=== PATIENT | female | born 1995 | race Caucasian/White ===

== ENCOUNTER 2023-04-17 05:34 | Emergency (ER) | payer BC, SELFPAY ==
[2023-04-17 05:37] VITALS: BP 150/88; PULSE 90; RESP 18; TEMP 36.6; O2SAT 97
[2023-04-17 07:43] VITALS: BP 133/85; PULSE 87; RESP 17; O2SAT 99
--- NOTE | 2023-04-17 08:37 | ED.GENADULT ---
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 No fevers or chills or sweats. No drainage. No urinary frequency urgency or dysuria. Has not had previous issues like this. 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 Related Data Allergies Allergy/AdvReac Type Severity Reaction Status Date / Time Cephalosporins Allergy Hives Verified 04/17/23 05:44 Sulfa (Sulfonamide Allergy Hives Verified 04/17/23 05:44 Antibiotics) Review of Systems Constitutional: Constitutional: Reports no additional constitutional complaints Gastrointestinal: Gastrointestinal: Reports no additional gastrointestinal complaints Genitourinary: Genitourinary: Reports no additional female genitourinary complaints Integumentary/Breasts: Skin/Breast: Reports system reviewed and no additional complaints, except as docu PMFSH Past Medical History Medical History (Updated 04/17/23 @ 08:41 by Darius Fleming MD) Healthy female adult Surgical History Surgical History (Updated 04/17/23 @ 08:38 by Darius Fleming MD) No pertinent past surgical history Exam Narrative: GENERAL: Well-appearing, well-nourished, and in no acute distress. HEAD: Normocephalic, atraumatic. CHEST: Clear to auscultation. No respiratory distress. HEART: Regular rate and rhythm. Normal peripheral pulses. : Swelling right Bartholin's gland cyst without cellulitis to the labia. EXTREMITIES: Normal range of motion. No edema. SKIN: Warm, dry, no rash. NEURO: Alert and oriented x3. PSYCH: Normal mood and affect. Course Course Emergency Course: Tolerated I and D. Discussed case with Gynecology on-call. Recommend follow-up next week and starting antibiotics. Patient verbalized understanding treatment plan. Vital Signs Vital signs: Vital Signs Temperature 97.9 F 04/17/23 05:37 Pulse Rate 90 04/17/23 05:37 Respiratory Rate 18 04/17/23 05:37 Blood Pressure 150/88 H 04/17/23 05:37 Pulse Oximetry 97 04/17/23 05:37 Oxygen Delivery Room Air 04/17/23 05:37 Temperature 97.9 F 04/17/23 05:37 Pulse Rate 87 04/17/23 07:43 Respiratory Rate 17 04/17/23 07:43 Blood Pressure 133/85 04/17/23 07:43 Pulse Oximetry 99 04/17/23 07:43 Oxygen Delivery Room Air 04/17/23 05:37 Procedures Abscess I/D bartholin's gland: Date of Incision: 04/17/23 Time of Incision: 08:00 Side (if applicable): right Local Anesthetic: lidocaine 1% and with epi Amount of anesthesia used (mL): 4 Technique: incised with #11 blade Packing used?: Word catheter I&D Results: Pus Medical Decision Making Vital Signs Vital Signs: Vital Signs Temperature 97.9 F 04/17/23 05:37 Pulse Rate 90 04/17/23 05:37 Respiratory Rate 18 04/17/23 05:37 Blood Pressure 150/88 H 04/17/23 05:37 Pulse Oximetry 97 04/17/23 05:37 Oxygen Delivery Room Air 04/17/23 05:37 Temperature 97.9 F 04/17/23 05:37 Pulse Rate 87 04/17/23 07:43 Respiratory Rate 17 04/17/23 07:43 Blood Pressure 133/85 04/17/23 07:43 Pulse Oximetry 99 04/17/23 07:43 Oxygen Delivery Room Air 04/17/23 05:37 Discharge Plan Discharge Clinical Impression: Bartholin's gland abscess Patient Disposition: Home, Self-Care Condition: Stable Instructions: Antibiotic Form, Bartholin Cyst (ED) Additional Instructions: Follow-up with gynecology for further treatment evaluation. You will need to have your catheter removed. If it does fall out that is okay. Prescriptions: New doxycycline hyclate 100 mg capsule 100 mg PO BID Qty: 14 0RF hydrocodone-acetaminophen 5-325 mg tablet 1 tablet PO Q6H PRN (Re
[2023-04-17 08:46] VITALS: BP 137/85; PULSE 97; RESP 16; TEMP 37.1; O2SAT 97
== END 2023-04-17 09:10 | disposition home or self-care (01) ==
LOC: ANHED 09:06
PROVIDERS: Emergency Provider Emergency Medicine
DX: N75.1 Abscess of Bartholin's gland (principal)
CPT/HCPCS: 56420; 99283